=== PATIENT | female | born 1945 | race Caucasian/White ===

== ENCOUNTER 2024-09-12 05:38 | Emergency (ER) | payer MEDICARE, OTHER ==
[~2024-09-12] VITALS: Ht 180.3 cm; Wt 95.3 kg
[2024-09-12] MEDS ORDERED: NAPR-1009 PO (06:45)
[2024-09-12 07:22] VITALS: BP 143/90; TEMP 98.6; O2SAT 98
== END 2024-09-12 07:23 | disposition home or self-care (01) ==
LOC: ER 05:38
DX: M79.661 Pain in right lower leg (principal); I10 Essential (primary) hypertension; E78.5 Hyperlipidemia, unspecified; Z60.2 Problems related to living alone
CPT/HCPCS: 73564-TC; 73610-TC